=== PATIENT | male | born 1980 | race Caucasian/White ===

== ENCOUNTER 2024-10-09 10:43 | Emergency (ER) | payer OTHER, SELFPAY ==
[2024-10-09 10:51] VITALS: BP 145/103
[2024-10-09 11:29] VITALS: BP 136/81; BMI 25.9
--- NOTE | 2024-10-09 11:39 | ED.GENMED ---
History of Present Illness
General
Chief Complaint: Crisis Evaluation
Time Seen by Provider: 10/09/24 11:16
History of Present Illness
History of Present Illness:
43-year-old transgender male presents to the emergency department for evaluation of 'mental issues'. Initial evaluation he is quite vague and does not elaborate. I question specifically whether they have had any suicidal intention to which the
patient nodded his head. I question whether he has any plan of suicidal attempt, he indicates no. Denies access to weapons. Denies homicidal ideation. When questioned whether he is willing to sign himself in for inpatient mental health treatment
he states 'yes'. He refuses to elaborate on further details of what is causing his mental change at this point. I question the patient whether he takes any prescription medications to which he stated 'blood alcohol'. When I questioned this
further he just repeatedly stated 'blood alcohol, blood alcohol'.
Past History
Past History
ED Past Medical History: Asthma
Social History
Tobacco: Smoker
Alcohol: Occasional
Family History
Family History: Negative Diabetes, Hypertension or CAD
Review of Systems
Review of Systems
Allergies reviewed?: Yes
All Other Systems: ROS reviewed and negative except as documented in HPI and ROS
Phy Exam
Physical Exam
Physical Exam:
GEN: Well appearing, NAD, WDWN
HEENT: Oral mucosa moist, no scleral icterus
Cardiac: Regular rate
Lung: No respiratory distress, no tachypnea
MSK: No gross deformity or injuries
Skin: Good color, no pallor or jaundice, no rashes
Neuro: AO x3, moves all extremities freely
Psych: Making poor eye contact, withdrawn
Course
Orders/Labs/Results
Orders:
Orders
10/09/24 10:56
1:1 Observation - Suicide/ Violent Behavior As Directed
Crisis Consult Urgent
Reason for Consult: SI
10/09/24 13:00
Nicotine [Nicoderm Transdermal] 14 mg TRANSDERM NOW STA
10/09/24 13:07
Alcohol Urgent
Complete Blood Count/With Diff Urgent
Comprehensive Metabolic Panel Urgent
Urinalysis Reflex To Culture Urgent
Date Specimen was Collected: 10/09/24
Time Specimen was Collected: 11:52
Urine Drug Abuse Screen Urgent
Date Specimen was Collected: 10/09/24
Time Specimen was Collected: 11:52
Urine Microscopic Reflex Cult Urgent
10/09/24 13:13
Lorazepam [Ativan] 2 mg PO NOW STA
Abnormal Lab Results
10/09/24
13:07
MCH 32.4 H pg
(27.0-31.0)
RDW 16.2 H %
(11.5-14.5)
BUN 3 L mg/dl
(9-20)
Total Protein 8.5 H g/dl
(6.3-8.2)
Albumin 5.1 H g/dl
(3.5-5.0)
Urine Ketones 3+ A
(Negative)
Ur Occult Blood Reflex 1+ A
(Negative)
Urine RBC 3-6 A /HPF
(0-2)
Urine Bacteria (Reflex) Few A
(Negative)
Urine Albumin (Reflex) 1+ A
(Neg - Trace)
U Marijuana (THC) Screen Positive H
(Negative)
10/09/24 13:07
10/09/24 13:07
Vital Signs
Initial and Last Documented VS:
Initial Vital Signs
Temp Pulse Resp BP Pulse Ox
97.5 F 119 18 145/103 96
10/09/24 10:51 10/09/24 10:51 10/09/24 10:51 10/09/24 10:51 10/09/24 10:51
Last Documented Vital Signs
Temp Pulse Resp BP Pulse Ox
98.6 F 82 20 136/81 99
10/09/24 11:29 10/09/24 11:29 10/09/24 11:29 10/09/24 11:29 10/09/24 11:29
MDM/Problems Addressed
MDM/Problems Addressed:
Seen by crisis and signed 201 admission, although alcohol level was quite elevated she seems clinically sober. Will be transferred to [facility]
*Critical Care Note
Total Time (30-74mins, 75-104mins- exclusive of procedures): Not Applicable
ED Attending Note
-
Portions of this chart may have been created with voice recognition software.� Occasional wrong word or��sound alike� substitutions may have occurred due to the inherent limitations of voice recognition software.
Discharge Plan
Departure
Patient Disposition: Psych Facility
Discharge Problem:
Suicidal ideation
Prescriptions:
No Action
sertraline 50 MG tablet
50 mg PO HS
Referrals:
UNKNOWN - PT NOT,INTERVIEWE [Family Provider] -
Interventions
Interventions:
*Risk Screen - Suicide Last Done: 10/09/24 10:51
*General Assessment Last Done: 10/09/24 10:51
*Neglect/Abuse Screening Last Done: 10/09/24 10:51
*ED- Fall Risk Assessment Last Done: 10/09/24 11:29
*ED COVID-19 Vaccine History Last Done: 10/09/24 11:29
*Nursing Disposition Last Done: 10/09/24 17:52
ED-Psychological Assessment Last Done: 10/09/24 11:29
Discharge Date and Time
Discharge Date/Time: 10/09/24 17:53
Print Language: UKRAINIAN
[2024-10-09] MEDS: NICODERM TRANSDERMAL 14 MG TRANSDERM (13:19)
[2024-10-09] MEDS: ATIVAN 2 MG PO (13:20)
[2024-10-09 13:21] LABS: % Basophils 0.5 % (0-2); % Eosinophils 0.5 % (0-6); % Immature Granulocytes 0.3 % (0-0.5); % Lymphocytes 39.1 % (20.5-51.1); % Monocytes 5.3 % (1.7-9.3); % Neutrophils 54.3 % (42.2-75.2); Absolute Lymphocytes 2.4 10^3/uL (1.2-3.4); Absolute Monocytes 0.3 10^3/uL (0.1-0.6); Absolute Neutrophils 3.4 10^3/uL (1.4-6.5); Hematocrit 45.5 % (39.0-52.0); Hemoglobin 16.1 g/dL (13.0-18.0); Mean Corp Hgb Conc. 35.4 g/dL (33.0-37.0); Mean Corpuscular Hgb 32.4 pg (27.0-31.0); Mean Corpuscular Volume 91.5 fL (80.0-94.0); Mean Platelet Volume 8.5 fL (7.4-10.4); Nucleated Red Blood Cells % 0 % (-); Platelet Count 380 10^3/uL (130-400); Red Blood Cell Count 4.97 10^6/uL (4.70-6.10); Red Cell Dist. Width 16.2 % (11.5-14.5); White Blood Cell Count 6.2 10^3/uL (4.8-10.8)
[2024-10-09 13:35] LABS: ALT (SGPT) 47 U/L (0-50); AST (SGOT) 54 U/L (17-59); Albumin 5.1 g/dl (3.5-5.0); Alkaline Phosphatase 88 U/L (38-126); Blood Urea Nitrogen 3 mg/dl (9-20); Calcium 9.8 mg/dl (8.4-10.2); Carbon Dioxide 24 mmol/L (22-30); Chloride 103 mmol/L (98-107); Estimated Creatinine Clearance > 125 ml/min; Glucose 92 mg/dl (70-99); Potassium 4.6 mmol/L (3.5-5.1); Sodium 144 mmol/L (135-145); Total Bilirubin 0.5 mg/dl (0.2-1.3); Total Protein 8.5 g/dl (6.3-8.2); eGFR > 60.00
[2024-10-09 14:51] LABS: Alcohol 298 mg/dl
[2024-10-09 15:28] LABS: Urine Albumin 1+ (Neg - Trace); Urine Bilirubin Negative (Negative); Urine Character Clear (Clear); Urine Color Yellow; Urine Glucose Negative (Negative); Urine Ketone 3+ (Negative); Urine Leukocyte Negative (Negative); Urine Nitrite Negative (Negative); Urine Occult Blood 1+ (Negative); Urine Urobilinogen Negative (Neg - 1+); Urine pH 6.5 (5.0-9.0)
[2024-10-09 15:44] LABS: Amphetamines Negative (Negative); Barbiturates Negative (Negative); Benzodiazepines Negative (Negative); Buprenorphine Negative (Negative); Cocaine Negative (Negative); Marijuana Positive (Negative); Methadone Negative (Negative); Methamphetamines Negative (Negative); Opiates Negative (Negative); Phencyclidine Negative (Negative); Tricyclic Antidepressants Negative (Negative)
[2024-10-09 16:21] LABS: Urine Bacteria Few (Negative); Urine White Cell 0-2 /HPF (0-5)
== END 2024-10-09 17:53 ==
LOC: EMR 10:43
PROVIDERS: Physician Assistant; EMERGENCY PHYSICIAN Emergency Medicine
DX: R45.851 Suicidal ideations (principal); J45.909 Unspecified asthma, uncomplicated; F17.200 Nicotine dependence, unspecified, uncomplicated; F10.90 Alcohol use, unspecified, uncomplicated
CPT/HCPCS: 99285; 80053; 80306; 81003; 81015; 82077; 85025